=== PATIENT | female | born 1955 | race Two or more races ===

== ENCOUNTER → 2017-10-31 | Emergency (ER) | payer OTHER ==
[~2017-10-31] VITALS: Ht 157.5 cm; Wt 52.2 kg
[~2017-10-31] MED LIST: ANTIVERT25 M1 PO; AVAPRO150 MG; COZAAR25 MG; LIPITOR20 MG PO; SIMVASTATIN40 MG; SIMVASTATIN5 MG; SYNTHROID75 MCG PO; SYNTHROID88 MCG; [UNRECOGNIZED DRUG - OTHER]
== END | disposition home or self-care (01) ==
LOC: ER 15:26
DX: R42 Dizziness and giddiness (principal)

== ENCOUNTER 2017-11-14 16:21 | Emergency (ER) | payer OTHER ==
[~2017-11-14] VITALS: Ht 162.6 cm; Wt 54.4 kg
[2017-11-14] MEDS ORDERED: EVISTA60 MG (16:51)
[2017-11-14] MEDS ORDERED: NEURONTIN800 MG (16:51)
[2017-11-14] MEDS ORDERED: ULTRACET (16:51)
[2017-11-14] MEDS ORDERED: VALTREX1000 MG (16:51)
== END 2017-11-14 21:50 | disposition home or self-care (01) ==
LOC: ER 16:21
DX: R13.10 Dysphagia, unspecified (principal)

== ENCOUNTER 2018-02-19 09:15 | Outpatient (CLI) | payer OTHER ==
[~2018-02-19 09:15] MED LIST changes: +EVISTA60 MG; +NEURONTIN800 MG; +ULTRACET; +VALTREX1000 MG
== END 2018-02-19 10:45 | disposition home or self-care (01) ==
LOC: RAD 501 09:15
DX: M25.551 Pain in right hip (principal)

== ENCOUNTER 2018-02-23 08:51 | Outpatient (CLI) | payer OTHER | END 2018-02-23 10:30 | disposition home or self-care (01) | LOC: MRI 08:51 | DX: M19.90 Unspecified osteoarthritis, unspecified site (principal); M25.552 Pain in left hip; M25.551 Pain in right hip ==

== ENCOUNTER 2018-03-07 07:39 | Outpatient (CLI) | payer OTHER | END 2018-03-07 08:00 | disposition home or self-care (01) | LOC: NUCLEAR 07:39 | DX: I87.2 Venous insufficiency (chronic) (peripheral) (principal) ==

== ENCOUNTER 2018-04-16 11:03 | Outpatient (CLI) | payer OTHER | END 2018-04-16 11:26 | disposition home or self-care (01) | LOC: MAMO-SONO 11:03 | DX: Z12.31 Encounter for screening mammogram for malignant neoplasm of breast (principal); N60.22 Fibroadenosis of left breast; N60.21 Fibroadenosis of right breast ==

== ENCOUNTER 2018-10-11 08:35 | Outpatient (CLI) | payer OTHER | END 2018-10-11 08:46 | disposition home or self-care (01) | LOC: RAD 501 08:35 | DX: M12.88 Other specific arthropathies, not elsewhere classified, other specified site (principal); M19.90 Unspecified osteoarthritis, unspecified site ==

== ENCOUNTER 2018-12-24 08:32 | Emergency (ER) | payer OTHER ==
[~2018-12-24] VITALS: Ht 157.5 cm; Wt 53.1 kg
[2018-12-24] MEDS ORDERED: SIMVASTATIN10 MG PO (09:22)
== END 2018-12-24 13:57 | disposition home or self-care (01) ==
LOC: ER 08:32
DX: K29.00 Acute gastritis without bleeding (principal)

== ENCOUNTER 2019-06-18 09:16 | Outpatient (CLI) | payer OTHER ==
[~2019-06-18 09:16] MED LIST changes: +SIMVASTATIN10 MG PO
== END 2019-06-18 11:43 | disposition home or self-care (01) ==
LOC: MAMO-SONO 09:16
DX: D24.2 Benign neoplasm of left breast (principal); E04.0 Nontoxic diffuse goiter

== ENCOUNTER 2019-06-18 10:51 | Outpatient (CLI) | payer OTHER | END 2019-06-18 10:54 | disposition home or self-care (01) | LOC: NUCLEAR 10:51 | DX: M81.0 Age-related osteoporosis without current pathological fracture (principal) ==

== ENCOUNTER 2020-07-15 09:43 | Outpatient (CLI) | payer OTHER | END 2020-07-15 11:05 | disposition home or self-care (01) | LOC: MAMO-SONO 09:43 | PROVIDERS: ATTEND Specialist | DX: D24.2 Benign neoplasm of left breast (principal); Z12.31 Encounter for screening mammogram for malignant neoplasm of breast ==

== ENCOUNTER 2021-12-08 10:34 | Outpatient (CLI) | payer OTHER | END 2021-12-08 10:53 | disposition home or self-care (01) | LOC: MAMO-SONO 10:34 | PROVIDERS: ATTEND Specialist | DX: E04.9 Nontoxic goiter, unspecified (principal) ==

== ENCOUNTER → 2021-12-08 | Outpatient (CLI) | payer OTHER | END | disposition home or self-care (01) | LOC: NUCLEAR 10:08 | PROVIDERS: ATTEND Internal Medicine Endocrinology, Diabetes & Metabolism | DX: M81.0 Age-related osteoporosis without current pathological fracture (principal) ==

== ENCOUNTER → 2023-04-17 | Outpatient (CLI) | payer OTHER | END | disposition home or self-care (01) | LOC: MAMO-SONO 09:18 | PROVIDERS: ATTEND Specialist | DX: D24.2 Benign neoplasm of left breast (principal) ==

== ENCOUNTER 2024-11-05 09:00 | Outpatient (CLI) | payer OTHER | END 2024-11-05 09:15 | disposition home or self-care (01) | LOC: MAMO-SONO 09:00 | PROVIDERS: ATTEND Specialist | DX: N60.11 Diffuse cystic mastopathy of right breast (principal); D24.2 Benign neoplasm of left breast; Z12.31 Encounter for screening mammogram for malignant neoplasm of breast ==

== ENCOUNTER 2025-02-25 13:27 | Outpatient (CLI) | payer OTHER | END 2025-02-25 13:33 | disposition home or self-care (01) | LOC: TOM 13:27 | PROVIDERS: ATTEND Internal Medicine Cardiovascular Disease | DX: R51.9 Headache, unspecified (principal) ==

== ENCOUNTER 2025-04-15 11:24 | Outpatient (CLI) | payer OTHER | END 2025-04-15 11:25 | disposition home or self-care (01) | LOC: NUCLEAR 11:24 | PROVIDERS: ATTEND Internal Medicine Endocrinology, Diabetes & Metabolism | DX: M81.0 Age-related osteoporosis without current pathological fracture (principal) ==